=== PATIENT | male | born 1990 | race Caucasian/White ===

== ENCOUNTER → 2020-11-27 19:38 | Outpatient (REF) | payer OTHER, SELFPAY ==
[2020-11-29 10:30] LABS: Lyme Ab w Rflx to Lyme Confirm Negative (Negative)
== END ==
LOC: NCHCN 19:38
PROVIDERS: PCP Family Medicine; Visit Provider Nurse Practitioner Community Health
DX: M25.571 Pain in right ankle and joints of right foot (principal); M25.471 Effusion, right ankle; W57.XXXA Bitten or stung by nonvenomous insect and other nonvenomous arthropods, initial encounter
CPT/HCPCS: 86618